=== PATIENT | male | born 1990 | race Caucasian/White ===

== ENCOUNTER 2019-08-28 13:32 | Emergency (ER) | payer MEDICAID, OTHER ==
[~2019-08-28] VITALS: Ht 182.9 cm; Wt 122.7 kg
[2019-08-28] MEDS ORDERED: HYDR-4383 PO (15:05)
[2019-08-28] MEDS ORDERED: AMOX-580 PO (15:05)
[2019-08-28] MEDS ORDERED: CHLO473M3 PO (15:05)
[2019-08-28 15:13] VITALS: BP 133/72
== END 2019-08-28 15:14 | disposition home or self-care (01) ==
LOC: ER 13:33
DX: K05.20 Aggressive periodontitis, unspecified (principal); E11.9 Type 2 diabetes mellitus without complications; Z60.2 Problems related to living alone; Z88.8 Allergy status to other drugs, medicaments and biological substances
CPT/HCPCS: 99283

== ENCOUNTER 2021-04-07 11:27 | Emergency (ER) | payer MEDICAID ==
[~2021-04-07] VITALS: Ht 182.9 cm; Wt 125.0 kg
[~2021-04-07 11:27] MED LIST: CHLO473M3 PO; HYDR-4383 PO
[2021-04-07 11:48] VITALS: BP 146/83
[2021-04-07] MEDS ORDERED: AMOX-422 PO (16:32)
== END 2021-04-07 16:43 | disposition home or self-care (01) ==
LOC: ER 11:28
DX: K04.7 Periapical abscess without sinus (principal); K02.9 Dental caries, unspecified; Z88.8 Allergy status to other drugs, medicaments and biological substances
CPT/HCPCS: 99283

== ENCOUNTER 2021-08-03 18:26 | Emergency (ER) | payer MEDICAID, OTHER ==
[~2021-08-03] VITALS: Ht 182.9 cm; Wt 127.0 kg
--- NOTE | 2021-08-03 18:33 | NUR ---
[place] PRODUCT IS CALLED [facility]
[2021-08-03 20:23] VITALS: BP 137/81
[2021-08-03] MEDS ORDERED: ALBU8HFA PO (20:38)
== END 2021-08-03 21:07 | disposition home or self-care (01) ==
LOC: ER 18:26
DX: T59.811A Toxic effect of smoke, accidental (unintentional), initial encounter (principal); R07.0 Pain in throat; Y92.89 Other specified places as the place of occurrence of the external cause; Z88.8 Allergy status to other drugs, medicaments and biological substances
CPT/HCPCS: 71045; 93005; 99283